=== PATIENT | female | born 1980 | race Caucasian/White ===

== ENCOUNTER 2023-05-03 10:31 | Emergency (ER) | payer MEDICAID ==
[~2023-05-03] VITALS: Ht 162.6 cm; Wt 75.0 kg
[2023-05-03 10:34] VITALS: O2SAT 100
[2023-05-03] MEDS ORDERED: LIDOCAINE HCL/PF 1% 10 MG/ML 5ML VIAL INFIL ONE ×4 (11:00→14:15)
[2023-05-03] MEDS ORDERED: BACITRACIN ZINC OINT UDPKT TOP ONE (11:00)
[2023-05-03] MEDS ORDERED: TETANUS, DIPHTHERIA, PERTUSSIS VAC/PF 0.5ML (>10YR OLD) IM ONE (11:00)
[2023-05-03 11:21] LABS: BASOPHILS % 0.4 % (0.0-2.0); EOSINOPHILS % 0.4 % (0.0-5.0); HEMATOCRIT. 36.5 % (36.0-48.0); HEMOGLOBIN. 11.6 g/dL (12.0-16.0); LYMPHOCYTES % 20.3 % (20.0-50.0); MEAN CORPUSCULAR HEMOGLOBIN 25.9 pg (28.0-32.0); MEAN CORPUSCULAR HGB CONC 31.7 g/dL (31.0-37.0); MEAN CORPUSCULAR VOLUME 81.9 fL (81.0-99.0); MEAN PLATELET VOLUME 8.2 fl (7.4-10.4); MONOCYTES % 5.4 % (2.0-8.0); NEUTROPHILS % 73.5 % (40.0-76.0); PLATELET 275 x1000/uL (130-400); RED BLOOD CELL COUNT 4.46 mill/uL (4.2-5.4); RED CELL DISTRIBUTION WIDTH 15.3 % (11.6-14.6); WHITE BLOOD COUNT 10.1 x1000/uL (4.5-11.0)
[2023-05-03 11:31] LABS: ALANINE AMINOTRANSFERASE 17 IU/L (10-49); ALBUMIN 4.2 g/dL (3.2-4.8); ASPARTATE AMINOTRANSFERASE 15 IU/L (<34); BILIRUBIN TOTAL 0.6 mg/dL (0.1-1.0); CALCIUM 9.4 mg/dL (8.7-10.4); CARBON DIOXIDE 23 mEq/L (21-32); CHLORIDE 104 mEq/L (98-107); CREATININE 0.7 mg/dL (0.6-1.0); GLUCOSE 128 mg/dL (70-105); PROTEIN TOTAL 7.5 g/dL (6.0-8.3); SODIUM 137 mEq/L (136-145); UREA NITROGEN BLOOD 8 mg/dL (9-23)
[2023-05-03 11:37] LABS: HCG SCREEN NEGATIVE
[2023-05-03] MEDS ORDERED: BO1 TP (18:27)
[2023-05-03] MEDS ORDERED: LIDO700A15 TP (18:28)
[2023-05-03] MEDS ORDERED: IBUP-2028 MT (18:28)
[2023-05-03 19:09] VITALS: BP 124/87; PULSE 98; RESP 16; TEMP 98.5
== END 2023-05-03 19:11 | disposition home or self-care (01) ==
LOC: ER 10:31
DX: S01.01XA Laceration without foreign body of scalp, initial encounter (principal); S16.1XXA Strain of muscle, fascia and tendon at neck level, initial encounter; V49.60XA Unspecified car occupant injured in collision with unspecified motor vehicles in traffic accident, initial encounter; W22.19XA Striking against or struck by other automobile airbag, initial encounter; Y93.89 Activity, other specified; Y92.89 Other specified places as the place of occurrence of the external cause; Y99.8 Other external cause status
CPT/HCPCS: 80053; 84703; 85025; 36415; 71045; 70450; 71260; 72125; 74177; 90715; 12005; 90471; 99285; J3490; Z7610

== ENCOUNTER 2023-05-14 16:45 | Emergency (ER) | payer MEDICAID ==
[~2023-05-14] VITALS: Ht 160 cm; Wt 86.0 kg
[~2023-05-14 16:45] MED LIST: BO1 TP; IBUP-2028 MT; LIDO700A15 TP
[2023-05-14 16:59] VITALS: BP 167/90; PULSE 97; RESP 20; TEMP 98.3; O2SAT 100
== END 2023-05-14 18:55 | disposition left against medical advice (07) ==
LOC: ER 16:45
DX: Z53.21 Procedure and treatment not carried out due to patient leaving prior to being seen by health care provider (principal)
CPT/HCPCS: 99281